=== PATIENT | male | born 1985 | race Caucasian/White ===

== ENCOUNTER 2019-10-23 09:00 | Observation (INO) | payer OTHER ==
[~2019-10-23] VITALS: Ht 180.3 cm; Wt 142.5 kg
[2019-10-29 11:01] VITALS: BP 150/79
[2019-10-29] MEDS ORDERED: TRAZ-187 PO (11:07)
[2019-10-29] MEDS ORDERED: FLUO10CA22 PO (11:07)
[2019-10-29] MEDS ORDERED: GABA600T10 PO (11:07)
[2019-10-29] MEDS ORDERED: OMEP40CA13 PO (11:07)
[2019-10-30] VITALS (21 sets, daily range): BP systolic 105–154; BP diastolic 39–90
[2019-10-30] MEDS ORDERED: CEFAZOLIN SODIUM 1 GM VIAL ONE ×2 (07:26→08:32)
[2019-10-30] MEDS ORDERED: LACTATED RINGERS 1000ML 1,000 ML IV ONE (07:26)
[2019-10-30 07:40] LABS: BASOPHILS % (AUTO) 0.3 % (0.0-5.0); EOSINOPHILS % (AUTO) 2.2 % (0.0-8.0); HEMATOCRIT 42.2 % (42-54); LYMPHOCYTES % (AUTO) 34.3 % (21.0-51.0); MEAN CORPUSCULAR HEMOGLOBIN 27.4 pg (27.0-33.0); MEAN CORPUSCULAR HGB CONC 33.6 g/dL (32.0-36.0); MEAN CORPUSCULAR VOLUME 81.5 fL (79-99); MONOCYTES % (AUTO) 6.6 % (3.0-13.0); NEUTROPHILS % (AUTO) 55.9 % (40.0-77.0); PLATELET COUNT (AUTO) 254 K/uL (130-400); RED BLOOD CELL COUNT(AUTO) 5.18 MIL/uL (4.50-6.20); WHITE BLOOD COUNT (AUTO) 8.8 K/uL (4.8-10.8)
[2019-10-30 07:49] LABS: CREATININE 1.2 mg/dL (0.5-1.5); POTASSIUM 3.6 mmol/L (3.5-5.1)
[2019-10-30] MEDS ORDERED: PROPOFOL 10 MG/ML 20ML VIAL IV ONE ×3 (09:18→11:46)
[2019-10-30] MEDS ORDERED: MIDAZOLAM HCL 1 MG/ML 2ML VIAL ONE (09:18)
[2019-10-30] MEDS ORDERED: DEXAMETHASONE SOD PHOSPHATE 10MG/ML 1ML VIAL ONE (09:18)
[2019-10-30] MEDS ORDERED: LIDOCAINE PF 2% 5ML ABBOJECT ONE (09:18)
[2019-10-30] MEDS ORDERED: FENTANYL CITRATE PF 50 MCG/1 ML 2ML VIAL ONE (09:18)
[2019-10-30] MEDS ORDERED: ONDANSETRON HCL 4 MG/2 ML VIAL ONE (09:18)
[2019-10-30] MEDS ORDERED: ROCURONIUM 10MG/1ML SYR 10 MG/ML ML ONE ×3 (09:19→12:07)
[2019-10-30] MEDS ORDERED: ROPIVACAINE 0.5% 5MG/ML 30ML IJ ONE (12:30)
[2019-10-30] MEDS ORDERED: CEPH500B PO (13:00)
[2019-10-30] MEDS ORDERED: IBUP-2071 PO (13:00)
[2019-10-30] MEDS ORDERED: HYDR-4457 PO (13:00)
[2019-10-30] MEDS ORDERED: GLYCOPYRROLATE 1 MG/5 ML SYRINGE ONE (13:05)
[2019-10-30] MEDS ORDERED: NEOSTIGMINE 5MG/5ML SYR IV ONE (13:05)
[2019-10-30] MEDS ORDERED: MEPERIDINE-PF 25 MG/ML SYG ONE ×2 (13:43→13:52)
[2019-10-30] MEDS ORDERED: KETOROLAC TROMETHAMINE 30MG/ML ONE (13:51)
[2019-10-30] MEDS ORDERED: MORPHINE SULFATE 2 MG/ML 1ML SYG ONE (14:06)
--- NOTE | 2019-10-30 14:35 | NUR ---
POST OP RECEIVED PT POST OP FROM [facility] FROM PACU. PT IN NO DISTRESS. PT RT KNEE DRESSING CLEAN AND DRY. ICE PACK APPLIED. PT ORIENTED TO ROOM AND CALL LIGHT WILL CONTINUE TO MONITOR
--- NOTE | 2019-10-30 15:30 | NUR ---
discharge pt and spouse given discharge instructions/script and voiced understanding. pt taken out via w/c pt still have some discomfort to rt knee. pt given crutches and knows how to use them.
== END 2019-10-30 15:30 | disposition home or self-care (01) ==
LOC: DAHIP 10-30 06:25 → EDSTATUS 10-30 09:00
PROVIDERS: ADMIT Orthopaedic Surgery; ATTEND Orthopaedic Surgery
DX: M17.31 Unilateral post-traumatic osteoarthritis, right knee (principal); Z20.828 Contact with and (suspected) exposure to other viral communicable diseases; M22.8X1 Other disorders of patella, right knee; M22.41 Chondromalacia patellae, right knee; M22.00 Recurrent dislocation of patella, unspecified knee
CPT/HCPCS: 27428; 29873; 36415; 73562; 80048; 85025; 96360; 96361; A4215; A4221; A4222; A4223; A4649 ×5; A4663; A4930; A6223; C1713 ×2; C1762; G0378 ×9; J0690 ×2; J1100; J1885; J2001; J2175 ×2; J2250; J2405; J2704 ×3; J2710; J2795; J3010; J3490; J7030; J7120; U0003

== ENCOUNTER → 2021-11-30 | Outpatient (CLI) | payer OTHER ==
[~2021-11-30] MED LIST: CEPH500B PO; FLUO10CA24 PO; GABA600T10 PO; GADOTERATE MEGLUMINE 10 MMOL/20 ML VIAL IV ONE; HYDR-4457 PO; IBUP-2071 PO; OMEP40CA21 PO; TRAZ-187 PO
== END | disposition home or self-care (01) ==
LOC: RAH 12:53
PROVIDERS: ATTEND Internal Medicine
DX: E23.7 Disorder of pituitary gland, unspecified (principal)
CPT/HCPCS: 70553; A9575

== ENCOUNTER → 2022-03-25 | Outpatient (CLI) | payer OTHER ==
[~2022-03-25] MED LIST changes: -GADOTERATE MEGLUMINE 10 MMOL/20 ML VIAL IV ONE
== END | disposition home or self-care (01) ==
LOC: SHCH 15:10
PROVIDERS: ATTEND Internal Medicine Cardiovascular Disease
DX: I11.9 Hypertensive heart disease without heart failure (principal); R07.9 Chest pain, unspecified
CPT/HCPCS: 93306

== ENCOUNTER → 2022-05-27 | Outpatient (CLI) | payer OTHER ==
[~2022-05-27] MED LIST changes: +IOHEXOL 350 MG/ML 100ML INFUS..BTL IV ONE
== END | disposition home or self-care (01) ==
LOC: RAH 08:15
PROVIDERS: ATTEND Internal Medicine Cardiovascular Disease
DX: I72.0 Aneurysm of carotid artery (principal); I65.23 Occlusion and stenosis of bilateral carotid arteries
CPT/HCPCS: 70498; Q9967

== ENCOUNTER → 2022-08-18 | Outpatient (CLI) | payer OTHER | END | disposition home or self-care (01) | LOC: RAH 08:11 | PROVIDERS: ATTEND Internal Medicine Cardiovascular Disease | DX: I51.7 Cardiomegaly (principal); G45.9 Transient cerebral ischemic attack, unspecified; M47.815 Spondylosis without myelopathy or radiculopathy, thoracolumbar region | CPT/HCPCS: 75574; Q9967 ==

== ENCOUNTER → 2024-10-10 | Outpatient (CLI) | payer OTHER ==
[~2024-10-10] MED LIST changes: +FLUO-341 PO; -FLUO10CA24 PO; +GABA-1405 PO; -GABA600T10 PO
--- NOTE | 2024-10-10 13:31 | HMCIMG ---
CT ABDOMEN/PELVIS W/CONTRAST REASON: FATTY LIVER, Diverticulitis of intestine, part unspecified, with perforatio COMPARISON: None. FINDINGS: Lung bases are clear. The visualized portion of the heart and pericardium appears to be normal. In the right cardiophrenic sulcus there is a 3 x 2.7 cm round density. There are no focal liver lesions. There is grade 1 hepatic steatosis of the liver. There are normal-appearing kidneys.. There is an exophytic cortical cyst seen in the upper pole the left kidney measuring 4.3 x 3.9 cm. There are other cysts seen in the upper and mid pole and lower pole of the left kidney. This is consistent or possibly a nonobstructing calculus in the lower pole of the right kidney. The right kidney also has a small cortical cyst less than 1 cm. Spleen and pancreas appear unremarkable. The gallbladder appears normal as well. Bowel loops appear unremarkable. There is scattered diverticulosis mostly in the descending and sigmoid colon with no evidence of diverticulitis.. This includes normal appearance of the appendix There is no evidence of free fluid or intraperitoneal air. There are no focal fluid collections. Aorta and retroperitoneum appear normal as do pelvic soft tissue structures. The anterior abdominal wall is intact. Osseous structures appear unremarkable. The urinary bladder has excretion of contrast. The prostate and seminal vesicle appears to be normal. There is no mass or free fluid in the pelvis. IMPRESSION: 1. Right cardiophrenic sulcus in the prevascular space there is a 3 x 2.7 cm round density. I would recommend a CT of the chest and this is amenable for CT-guided biopsy for histological sampling. 2. Multiple cysts seen in both kidneys 3. Nonobstructing calculus seen in the lower pole and midpole of the right kidney. 4. Scattered diverticulosis with no evidence of diverticulitis. 5. Grade 1 hepatic steatosis of the liver CT was performed with one or more following dose reduction techniques: automated exposure control, adjustment of the mA and kv according to patient's size, or use of a iterative reconstruction technique.
== END | disposition home or self-care (01) ==
LOC: RAH 10:33
PROVIDERS: ATTEND Internal Medicine Gastroenterology
DX: N28.1 Cyst of kidney, acquired (principal); K76.0 Fatty (change of) liver, not elsewhere classified; K57.30 Diverticulosis of large intestine without perforation or abscess without bleeding; N20.0 Calculus of kidney
CPT/HCPCS: 74177; Q9967

== ENCOUNTER → 2024-10-24 | Outpatient (CLI) | payer OTHER ==
[~2024-10-24] MED LIST changes: -IOHEXOL 350 MG/ML 100ML INFUS..BTL IV ONE; +IOHEXOL-350 75 ML VIAL IV ONE
--- NOTE | 2024-10-25 10:11 | HMCIMG ---
EXAM: CT Chest without and with Intravenous Contrast. CLINICAL HISTORY: Abnormal findings on diagnostic imaging of heart and coronary circulation TECHNIQUE: Axial computed tomography images of the chest without and with intravenous contrast. CONTRAST: without and with intravenous contrast. COMPARISON: CT abdomen and pelvis study dated October 10, 2024. FINDINGS: LUNGS: Bibasilar streaky atelectasis is present. No pulmonary nodule. No pulmonary mass or consolidation. There is a 3 mm calcified granuloma in the superior segment of the left lower lobe. PLEURAL SPACES: No evidence of pneumothorax. No pleural effusion. HEART: No cardiomegaly. No significant pericardial effusion. No evidence of aortic aneurysm or dissection. LYMPH NODES: Again noted is a nonenhancing fluid density lesion in the right anterior pericardial fat pad/mediastinum, measuring 3 x 2.5 cm, without significant interval change. Otherwise, no mediastinal mass or enlarged lymph nodes. BONES: No focal osseous abnormality or acute fracture. Mild degenerative changes are seen in the spine. UPPER ABDOMEN: Again noted is a right adrenal myelolipoma, measuring 3.5 x 3 cm, without significant interval change. Again noted is a 2 mm nonobstructing right renal calculus. Left renal cysts are again seen. There is ill-defined fat density anterior to the liver, of indeterminate etiology. IMPRESSION: No suspicious lung nodules. Category 1: Normal; continue annual screening. No pulmonary infiltrates or pleural effusions. Nonenhancing fluid density lesion in the right anterior pericardial fat pad/mediastinum, without significant interval change, which may represent a pericardial cyst. Right adrenal myelolipoma, without significant interval change. Other findings as described above. Category 1: Normal; continue annual screening Category 2: Benign appearance or behavior, continue annual screening Category 3: Probably benign, [address] recommended Category 4A: Suspicious, [address] recommended; may consider PET/CT Category 4B: Suspicious, Additional diagnostics and/or tissue sampling recommended Category 4X: Suspicious, Additional diagnostics and/or tissue sampling recommended Category 0: Recalls (incomplete screen due to Incomplete coverage, Noise, Respiratory motion, Expiration, Obscured by acute abnormality) /[place]
== END | disposition home or self-care (01) ==
LOC: RAH 10:14
PROVIDERS: ATTEND Internal Medicine Gastroenterology
DX: J98.11 Atelectasis (principal); J98.4 Other disorders of lung; D17.79 Benign lipomatous neoplasm of other sites; N20.0 Calculus of kidney; N28.1 Cyst of kidney, acquired; M47.814 Spondylosis without myelopathy or radiculopathy, thoracic region; R93.1 Abnormal findings on diagnostic imaging of heart and coronary circulation
CPT/HCPCS: 71270; Q9967